=== PATIENT | female | born 1970 | race Caucasian/White ===

== ENCOUNTER 2022-02-15 07:20 | Outpatient (CLI) | payer OTHER, SELFPAY | END 2022-02-15 07:21 | disposition home or self-care (01) | LOC: INJ CL 07:23 | PROVIDERS: PCP Family Medicine; Visit Provider Family Medicine | DX: M54.16 Radiculopathy, lumbar region (principal); M51.36 Other intervertebral disc degeneration, lumbar region | CPT/HCPCS: 62323; J0702; Q9966 ==

== ENCOUNTER 2022-09-20 06:50 | Outpatient (CLI) | payer OTHER, SELFPAY | END 2022-09-20 06:51 | disposition home or self-care (01) | LOC: INJ CL 06:54 | PROVIDERS: PCP Family Medicine; Visit Provider Family Medicine | DX: M54.16 Radiculopathy, lumbar region (principal); M51.36 Other intervertebral disc degeneration, lumbar region | CPT/HCPCS: 62323; J0702; Q9966 ==

== ENCOUNTER 2023-03-25 07:08 | Outpatient (CLI) | payer OTHER, SELFPAY | END 2023-03-25 07:09 | disposition home or self-care (01) | LOC: INJ CL 07:09 | PROVIDERS: PCP Family Medicine; Visit Provider Family Medicine | DX: M54.16 Radiculopathy, lumbar region (principal); M51.36 Other intervertebral disc degeneration, lumbar region | CPT/HCPCS: 62323; J0702; Q9966 ==